=== PATIENT | female | born 1980 | race Caucasian/White ===

== ENCOUNTER → 2016-11-06 | Outpatient (CLI) | payer OTHER ==
--- NOTE | 2016-11-06 16:31 | US ---
EXAMINATION TYPE: US thyroid st tissue head/neck DATE OF EXAM: 11/06/2016 3:58 PM COMPARISON: NONE CLINICAL HISTORY: R22.1 Swelling, Mass, Or Lump In Neck. Palpable area in right neck near ear for 5 m onths, no change in size 1.3cm normal appearing lymph node with internal fatty hilum and vascularity noted IMPRESSION: Normal-appearing lymph node at the site of clinical concern. Correlate clinically.
== END | disposition home or self-care (01) ==
LOC: RADUSWWP 15:48
PROVIDERS: ATTEND Otolaryngology
DX: R22.1 Localized swelling, mass and lump, neck (principal)
CPT/HCPCS: 76536

== ENCOUNTER 2018-04-23 23:35 | Emergency (ER) | payer OTHER ==
[2018-04-24 00:26] LABS: Basophils # (A) 0.1 k/uL (0-0.2); Basophils % (A) 1 %; Eosinophils # (A) 0.4 k/uL (0-0.7); Eosinophils % (A) 3 %; HCT 44.3 % (34.0-46.0); HGB 14.3 gm/dL (11.4-16.0); Lymphocytes # (A) 3.8 k/uL (1.0-4.8); Lymphocytes % (A) 30 %; MCH 29.8 pg (25.0-35.0); MCHC 32.3 g/dL (31.0-37.0); MCV 92.2 fL (80.0-100.0); Mean Platelet Volume 6.8; Monocytes # (A) 0.5 k/uL (0-1.0); Monocytes % (A) 4 %; Neutrophils # (A) 7.5 k/uL (1.3-7.7); Neutrophils % (A) 61 %; Platelet Count 283 k/uL (150-450); RBC 4.81 m/uL (3.80-5.40); RDW 12.7 % (11.5-15.5); WBC 12.4 k/uL (3.8-10.6)
[2018-04-24 00:27] LABS: Appearance,Urine Clear (Clear); Bilirubin,Urine Negative (Negative); Blood,Urine Negative (Negative); Color,Urine Yellow; Glucose,Urine (UA) Negative (Negative); Ketones,Urine Negative (Negative); Leukocyte Esterase,Urine Negative (Negative); Nitrite,Urine Negative (Negative); PH, Urine 7.5 (5.0-8.0); Protein,Urine Negative (Negative); Specific Gravity,Urine 1.016 (1.001-1.035); Urobilinogen,Urine <2.0 mg/dL (<2.0)
--- NOTE | 2018-04-24 00:32 | ED ---
Abdominal Pain HPI - General Chief Complaint: Abdominal Pain Stated Complaint: Abdominal Pain Time Seen by Provider: 04/24/18 00:01 Source: patient Mode of arrival: ambulatory Limitations: no limitations - History of Present Illness Initial Comments: This patient's a 37-year-old woman who presents to be evaluated for abdominal pain. She states that symptoms came on approximately 5 hours ago. She indicates the right lower quadrant. She states that she notes it more when she coughs and she had initially thought that she may have strained something because she has been doing a fair amount of coughing. She has not had vomiting or diarrhea but did have a little bit of nausea that has resolved. No fever or chills. No anorexia. No change in urination or bowel movements. The patient believes that her last menstrual period was normal but states that she has an IUD so she has very little bleeding anyways. MD Complaint: abdominal pain Onset/Timin -: hour(s) Location: RLQ Radiation: none Migration to: no migration Severity: moderate Quality: sharp Consistency: constant Improves With: nothing Worsens With: other (coughing) Associated Symptoms: nausea - Related Data Home Medications Medication Instructions Recorded Confirmed Famotidine [Pepcid] 1 tab PO BID 12/25/15 12/25/15 Vit 84/Iron/FA 1/Dha 1 tab PO DAILY 12/25/15 12/25/15 [Prenate Essential Softgel] Previous Rx's Medication Instructions Recorded Acetaminophen-Codeine 300-30mg 2 tab PO Q6H PRN #20 tablet 12/27/15 [Tylenol #3] Allergies Allergy/AdvReac Type Severity Reaction Status Date / Time No Known Allergies Allergy Verified 04/23/18 23:42 Review of Systems ROS Statement: Those systems with pertinent positive or pertinent negative responses have been documented in the HPI. ROS Other: All systems not noted in ROS Statement are negative. Constitutional: Denies: fever, chills Respiratory: Reports: cough. Denies: dyspnea, wheezes, hemoptysis Cardiovascular: Denies: chest pain, palpitations, edema Gastrointestinal: Reports: abdominal pain, nausea. Denies: vomiting, diarrhea, constipation, melena, hematochezia Genitourinary: Reports: other (IUD). Denies: dysuria, hematuria, abnormal menses Musculoskeletal: Denies: back pain Skin: Denies: rash Neurological: Denies: headache, weakness, numbness Past Medical History Past Medical History: GERD/Reflux, Musculoskeletal Disorder Additional Past Medical History / Comment(s): svt, cardiac ablation Jul 2010, spinal degeneration of discs, fracture l-5, heriation and stenosis of spine. fusion 2005. History of Any Multi-Drug Resistant Organisms: None Reported Past Surgical History: Adenoidectomy, Back Surgery, Cardiac Ablation, Tonsillectomy Additional Past Surgical History / Comment(s): cardiac ablation Jul 2010, Back Surgery March 29, 2012, laceration left elbow with plastic surgery, right knee meniscus repair, cervical lesion removed, lumbar fusion Past Anesthesia/Blood Transfusion Reactions: No Reported Reaction, Motion Sickness Past Psychological History: Anxiety Smoking Status: Current every day smoker Past Alcohol Use History: Rare Past Drug Use History: None Reported - Past Family History Father Family Medical History: Diabetes Mellitus Additional Family Medical History / Comment(s): family hx of carduiomyopathy=5 family members under 60 yrs of age due to. Mother Family Medical History: Asthma General Exam Limitations: no limitations General appearance: alert, in no apparent distress Head exam: Present: atraumatic, normocephalic Eye exam: Present: normal appearance. Absent: scleral icterus, conjunctival injection ENT exam: Present: normal oropharynx Neck exam: Present: normal inspection Respiratory exam: Present: wheezes (Very mild end expiratory wheeze), other ( Occasional nonproductive cough during exam). Absent: respiratory distress, rales, rhonchi, stridor Cardiovascular Exam: Present: regular rate, normal rhythm, normal heart sounds. Absent: systolic murmur, diastolic murmur, rubs, gallop GI/Abdominal exam: Present: soft, tenderness (There is mild right lower quadrant tenderness without rebound or guarding), normal bowel sounds. Absent: distended, guarding, rebound, rigid, mass, pulsatile mass, hernia Extremities exam: Present: normal inspection, normal capillary refill. Absent: pedal edema, calf tenderness Back exam: Present: normal inspection. Absent: CVA tenderness (R), CVA tenderness (L) Neurological exam: Present: alert Skin exam: Present: warm, dry, intact, normal color. Absent: rash Course Vital Signs 04/23/18 23:41 Temperature 98.2 F Pulse Rate 104 H Respiratory 20 Rate Blood Pressure 131/83 O2 Sat by Pulse 100 Oximetry Medical Decision Making - Medical Decision Making On reevaluation, the patient's symptoms have improved. She is declining any further treatment. On reevaluation there is no tenderness. We discussed appropriate further care and follow-up as well as return parameters. - Lab Data Result diagrams: 04/24/18 00:15 04/24/18 00:15 Lab Results 04/24/18 04/24/18 04/24/18 Range/Units 00:15 00:15 00:15 WBC 12.4 H (3.8-10.6) k/uL RBC 4.81 (3.80-5.40) m/uL Hgb 14.3 (11.4-16.0) gm/dL Hct 44.3 (34.0-46.0) % MCV 92.2 (80.0-100.0) fL MCH 29.8 (25.0-35.0) pg MCHC 32.3 (31.0-37.0) g/dL RDW 12.7 (11.5-15.5) % Plt Count 283 (150-450) k/uL Neutrophils % 61 % Lymphocytes % 30 % Monocytes % 4 % Eosinophils % 3 % Basophils % 1 % Neutrophils # 7.5 (1.3-7.7) k/uL Lymphocytes # 3.8 (1.0-4.8) k/uL Monocytes # 0.5 (0-1.0) k/uL Eosinophils # 0.4 (0-0.7) k/uL Basophils # 0.1 (0-0.2) k/uL Sodium 139 (137-145) mmol/L Potassium 4.4 (3.5-5.1) mmol/L Chloride 110 H (98-107) mmol/L Carbon Dioxide 24 (22-30) mmol/L Anion Gap 5 mmol/L BUN 13 (7-17) mg/dL Creatinine 0.55 (0.52-1.04) mg/dL Est GFR (CKD-EPI)AfAm >90 (>60 ml/min/1.73 sqM) Est GFR (CKD-EPI)NonAf >90 (>60 ml/min/1.73 sqM) Glucose 99 (74-99) mg/dL Calcium 9.3 (8.4-10.2) mg/dL Total Bilirubin 0.3 (0.2-1.3) mg/dL AST 21 (14-36) U/L ALT 22 (9-52) U/L Alkaline Phosphatase 47 (38-126) U/L Total Protein 6.1 L (6.3-8.2) g/dL Albumin 3.9 (3.5-5.0) g/dL Amylase 45 (30-110) U/L Lipase 188 (23-300) U/L Urine Color Urine Appearance (Clear) Urine pH (5.0-8.0) Ur Specific [place] (1.001-1.035) Urine Protein (Negative) Urine Glucose (UA) (Negative) Urine Ketones (Negative) Urine Blood (Negative) Urine Nitrite (Negative) Urine Bilirubin (Negative) Urine Urobilinogen (<2.0) mg/dL Ur Leukocyte Esterase (Negative) Urine HCG, Qual Not Detected (Not Detectd) 04/24/18 Range/Units 00:15 WBC (3.8-10.6) k/uL RBC (3.80-5.40) m/uL Hgb (11.4-16.0) gm/dL Hct (34.0-46.0) % MCV (80.0-100.0) fL MCH (25.0-35.0) pg MCHC (31.0-37.0) g/dL RDW (11.5-15.5) % Plt Count (150-450) k/uL Neutrophils % % Lymphocytes % % Monocytes % % Eosinophils % % Basophils % % Neutrophils # (1.3-7.7) k/uL Lymphocytes # (1.0-4.8) k/uL Monocytes # (0-1.0) k/uL Eosinophils # (0-0.7) k/uL Basophils # (0-0.2) k/uL Sodium (137-145) mmol/L Potassium (3.5-5.1) mmol/L Chloride (98-107) mmol/L Carbon Dioxide (22-30) mmol/L Anion Gap mmol/L BUN (7-17) mg/dL Creatinine (0.52-1.04) mg/dL Est GFR (CKD-EPI)AfAm (>60 ml/min/1.73 sqM) Est GFR (CKD-EPI)NonAf (>60 ml/min/1.73 sqM) Glucose (74-99) mg/dL Calcium (8.4-10.2) mg/dL Total Bilirubin (0.2-1.3) mg/dL AST (14-36) U/L ALT (9-52) U/L Alkaline Phosphatase (38-126) U/L Total Protein (6.3-8.2) g/dL Albumin (3.5-5.0) g/dL Amylase (30-110) U/L Lipase (23-300) U/L Urine Color Yellow Urine Appearance Clear (Clear) Urine pH 7.5 (5.0-8.0) Ur Specific [place] 1.016 (1.001-1.035) Urine Protein Negative (Negative) Urine Glucose (UA) Negative (Negative) Urine Ketones Negative (Negative) Urine Blood Negative (Negative) Urine Nitrite Negative (Negative) Urine Bilirubin Negative (Negative) Urine Urobilinogen <2.0 (<2.0) mg/dL Ur Leukocyte Esterase Negative (Negative) Urine HCG, Qual (Not Detectd) Disposition Clinical Impression: Abdominal pain, Bronchitis Disposition: HOME SELF-CARE Condition: Good Instructions: Abdominal Pain (ED) Is patient prescribed a controlled substance at d/c from ED?: No Referrals: Shimon Hall MD [Primary Care Provider] - 1-2 days
[2018-04-24 00:39] LABS: ALT 22 U/L (9-52); AST 21 U/L (14-36); Albumin 3.9 g/dL (3.5-5.0); Alkaline Phosphatase 47 U/L (38-126); Amylase 45 U/L (30-110); Anion Gap 5 mmol/L; Blood Urea Nitrogen 13 mg/dL (7-17); Calcium 9.3 mg/dL (8.4-10.2); Carbon Dioxide 24 mmol/L (22-30); Chloride 110 mmol/L (98-107); Glucose 99 mg/dL (74-99); Lipase 188 U/L (23-300); Potassium 4.4 mmol/L (3.5-5.1); Sodium 139 mmol/L (137-145); Total Bilirubin 0.3 mg/dL (0.2-1.3); Total Protein 6.1 g/dL (6.3-8.2)
--- NOTE | 2018-04-24 01:03 | CT ---
EXAMINATION TYPE: CT abdomen pelvis wo con DATE OF EXAM: 04/24/2018 COMPARISON: 03/31/2012 HISTORY: right sided flank pain CT DLP: 411.6 mGycm Automated exposure control for dose reduction was used. TECHNIQUE: Helical acquisition of images was performed from the lung bases through the pelvis. FINDINGS: Lung bases are clear. There is no pleural effusion. Heart size is normal. There is no pericardial eff usion. Stomach appears normal. Spleen is top normal in size and measures 13 cm. Liver appears normal. Bile ducts are not dilated. There is no sign of pancreatic mass. Gallbladder appears normal. There is no adrenal mass. Kidneys have normal size and contour. There is no hydronephrosis. There is no retroperitoneal adenopathy. There is no ascites. Ureters are not dilated. There is IUD noted in th e uterus. Uterus is anteverted. Bladder distends smoothly. There is no inguinal hernia. There is no f ree fluid in the pelvis. There is posterior fusion surgery from L4 to S1. Lumbar vertebra have normal alignment. There is narr owing of L4-5 L5-S1 disc spaces. Bony pelvis appears intact. There is no sign of free air. There is no intestinal wall thickening. There are no dilated loops. There are diverticula in the asce nding colon. Appendix is not seen. There is no sign of appendicitis. There are a few diverticula in t he left colon. IMPRESSION: There is some colonic diverticulosis without diverticulitis. There is clearing of the pulmonary infil trates and atelectasis at the lung bases compared to old exam. No sign of acute abdomen and pelvis. IMPRESSION:
[2018-04-24] MEDS ORDERED: KETOROLAC 30 MG/ML 1 ML VIAL IVP STA (01:27)
[2018-04-24] MEDS ORDERED: SODIUM CHLORIDE 0.9% 500 ML 500 ML IV STA (01:29)
[2018-04-24 02:45] VITALS: BP 98/57; PULSE 81; RESP 16; TEMP 97.8
== END 2018-04-24 02:45 | disposition home or self-care (01) ==
LOC: EC 23:35
DX: J40 Bronchitis, not specified as acute or chronic (principal); R10.31 Right lower quadrant pain; R11.0 Nausea; K21.9 Gastro-esophageal reflux disease without esophagitis; F17.200 Nicotine dependence, unspecified, uncomplicated; Z79.899 Other long term (current) drug therapy; Z97.5 Presence of (intrauterine) contraceptive device
CPT/HCPCS: 36415; 80053; 82150; 83690; 85025; 81003; 81025; 74176; 99284; 96374; 96361; J1885

== ENCOUNTER → 2018-10-01 | Outpatient (CLI) | payer OTHER ==
[2018-10-01 07:55] LABS: Basophils # (A) 0.1 k/uL (0-0.2); Basophils % (A) 1 %; Eosinophils # (A) 0.2 k/uL (0-0.7); Eosinophils % (A) 2 %; HCT 46.3 % (34.0-46.0); HGB 15.7 gm/dL (11.4-16.0); Lymphocytes # (A) 2.9 k/uL (1.0-4.8); Lymphocytes % (A) 27 %; MCH 30.1 pg (25.0-35.0); MCV 88.6 fL (80.0-100.0); Mean Platelet Volume 7.2; Monocytes # (A) 0.5 k/uL (0-1.0); Monocytes % (A) 5 %; Neutrophils # (A) 6.8 k/uL (1.3-7.7); Neutrophils % (A) 64 %; Platelet Count 317 k/uL (150-450); RBC 5.22 m/uL (3.80-5.40); RDW 13.9 % (11.5-15.5); WBC 10.7 k/uL (3.8-10.6)
[2018-10-01 09:39] LABS: Erythrocyte Sedimentation Rate 2 mm/hr (0-20)
[2018-10-01 16:34] LABS: Rheumatoid Factor 14 IU/mL (0-15)
[2018-10-01 16:44] LABS: Vitamin D 25 Hydroxy 51.8 ng/mL (30.0-100.0)
[2018-10-01 16:47] LABS: ALT 14 U/L (8-44); AST 15 U/L (13-35); Albumin/Globulin Ratio 2.72 (1.60-3.17); Alkaline Phosphatase 60 U/L (41-126); C Reactive Protein <0.4 mg/dL (0.0-0.8); Calcium 9.5 mg/dL (8.7-10.3); Carbon Dioxide 23.9 mmol/L (21.6-31.8); Chloride 107 mmol/L (96-109); Cholesterol 182 mg/dL (0-200); Globulin 1.8 g/dL (1.6-3.3); Glucose 94 mg/dL (70-110); LDL Cholesterol,Calculated 95.2 mg/dL (0.0-131.0); Potassium 4.2 mmol/L (3.5-5.5); Sodium 137 mmol/L (135-145); Total Bilirubin 0.5 mg/dL (0.3-1.2); Total Protein 6.7 g/dL (6.2-8.2)
[2018-10-01 17:26] LABS: Cyclic Citrullinated Pep IgG NEGATIVE (NEGATIVE)
== END | disposition home or self-care (01) ==
LOC: LABWHC1 07:08
PROVIDERS: ATTEND Internal Medicine
DX: Z00.00 Encounter for general adult medical examination without abnormal findings (principal); I73.00 Raynaud's syndrome without gangrene; E55.9 Vitamin D deficiency, unspecified
CPT/HCPCS: 36415; 80053; 80061; 82306; 85025; 85652; 86038; 86140; 86200; 86431

== ENCOUNTER 2019-06-22 15:30 | Emergency (ER) | payer OTHER ==
[2019-06-22 15:56] VITALS: BP 132/84; PULSE 78; RESP 18; TEMP 97.9
[2019-06-22] MEDS ORDERED: LIDOCAINE 1% INJ 10MG/ML (20 ML MDV) SQ ONE (16:25)
[2019-06-22] MEDS ORDERED: DIPH,PERTUS(ACELL)TETVAC-LF 0.5 ML VIAL IM ONE (16:25)
--- NOTE | 2019-06-22 16:52 | ED ---
General Adult HPI - General Chief complaint: Wound/Laceration Stated complaint: Laceration Time Seen by Provider: 06/22/19 16:20 Source: patient, RN notes reviewed Mode of arrival: ambulatory Limitations: no limitations - History of Present Illness Initial comments: 38-year-old female with a past medical history of GERD presents to the emergency department for a chief of laceration of the left second digit. This occurred just prior to arrival. The patient was using a knife for cooking when she cut her finger. She denies any difficulty moving her finger. Tetanus is not up-to-date.Patient has no other complaints at this time including shortness of breath, chest pain, abdominal pain, nausea or vomiting, headache, or visual changes. - Related Data Home Medications Medication Instructions Recorded Confirmed Famotidine [Pepcid] 1 tab PO BID 12/25/15 12/25/15 Vit 84/Iron/FA 1/Dha 1 tab PO DAILY 12/25/15 12/25/15 [Prenate Essential Softgel] Previous Rx's Medication Instructions Recorded Acetaminophen-Codeine 300-30mg 2 tab PO Q6H PRN #20 tablet 12/27/15 [Tylenol #3] Allergies Allergy/AdvReac Type Severity Reaction Status Date / Time No Known Allergies Allergy Verified 04/23/18 23:42 Review of Systems ROS Statement: Those systems with pertinent positive or pertinent negative responses have been documented in the HPI. ROS Other: All systems not noted in ROS Statement are negative. Past Medical History Past Medical History: GERD/Reflux, Musculoskeletal Disorder Additional Past Medical History / Comment(s): svt, cardiac ablation Jul 2010, spinal degeneration of discs, fracture l-5, heriation and stenosis of spine. fusion 2005. History of Any Multi-Drug Resistant Organisms: None Reported Past Surgical History: Adenoidectomy, Back Surgery, Cardiac Ablation, Tonsillectomy Additional Past Surgical History / Comment(s): cardiac ablation Jul 2010, Back Surgery March 29, 2012, laceration left elbow with plastic surgery, right knee meniscus repair, cervical lesion removed, lumbar fusion Past Anesthesia/Blood Transfusion Reactions: No Reported Reaction, Motion Sickness Past Psychological History: Anxiety Smoking Status: Former smoker Past Alcohol Use History: Rare Past Drug Use History: None Reported - Past Family History Father Family Medical History: Diabetes Mellitus Additional Family Medical History / Comment(s): family hx of carduiomyopathy=5 family members under 60 yrs of age due to. Mother Family Medical History: Asthma General Exam Limitations: no limitations General appearance: alert, in no apparent distress Head exam: Present: atraumatic Eye exam: Present: normal appearance, PERRL, EOMI. Absent: scleral icterus, co njunctival injection, periorbital swelling ENT exam: Present: normal exam, mucous membranes moist Neck exam: Present: normal inspection. Absent: tenderness, meningismus, lymphadenopathy Respiratory exam: Present: normal lung sounds bilaterally. Absent: respiratory distress, wheezes, rales, rhonchi, stridor Cardiovascular Exam: Present: regular rate, normal rhythm, normal heart sounds. Absent: systolic murmur, diastolic murmur, rubs, gallop, clicks Extremities exam: Present: full ROM (full Range motion of the left second digit including DIP and PIP joints), normal capillary refill (cap refill less than 2 seconds in the left second digit.), other (There is a 1.5 cm laceration across the palmar aspect of the middle phalanx of the left second digit). Absent: tenderness, pedal edema, joint swelling, calf tenderness Neurological exam: Present: alert Course Vital Signs 06/22/19 15:54 Temperature 97.9 F Pulse Rate 78 Respiratory 18 Rate Blood Pressure 132/84 O2 Sat by Pulse 100 Oximetry Procedures - Laceration Laceration #1 Consent Obtained: verbal consent Indication: laceration Site: hand Size (cm): 1 Description: linear Depth: simple, single layer Anesthetic Used: lidocaine 1% Anesthesia Technique: local infiltration Amount (mls): 2 Pre-repair: wound explored, irrigated extensively (with saline pressure irrigation), deep structures intact Type of Sutures: nylon Size of Sutures: 5-0 Number of Sutures: 5 Technique: simple, interrupted Patient Tolerated Procedure: well, no complications Medical Decision Making - Medical Decision Making There is a 1.5 cm laceration along the middle phalanx palmar aspect of the left second digit. Patient has full range of motion of the left second digit. Full strength in the flexor tendon. Thorough examination does not reveal any evidence of tendon injury. Wound was cleaned thoroughly with saline pressure irrigation. It was repaired with 5 simple interrupted sutures. I discussed return parameters with patient including ulcer infection. Discussed returning in 7-10 days for suture removal. Discussed following up with primary care in 1- 2 days for a wound recheck. Patient is in agreement. Disposition Clinical Impression: Laceration Disposition: HOME SELF-CARE Condition: Good Instructions (If sedation given, give patient instructions): Care For Your Stitches (ED), Laceration (ED) Additional Instructions: Please follow up with primary care in 1-2 days for a recheck. Please monitor for signs of infection. Return in 7-10 days for suture removal. Return earlier if you have any worsening symptoms. Is patient prescribed a controlled substance at d/c from ED?: No Referrals: Shimon Hall MD [Primary Care Provider] - 1-2 days Time of Disposition: 16:51
== END 2019-06-22 17:00 | disposition home or self-care (01) ==
LOC: EC 15:30
DX: S61.412A Laceration without foreign body of left hand, initial encounter (principal); Z23 Encounter for immunization; K21.9 Gastro-esophageal reflux disease without esophagitis; Z79.899 Other long term (current) drug therapy; Z87.891 Personal history of nicotine dependence; W26.0XXA Contact with knife, initial encounter; Y93.G3 Activity, cooking and baking
CPT/HCPCS: 90715; 99282; 12001; 90471; J2001

== ENCOUNTER → 2020-07-25 | Outpatient (CLI) | payer OTHER ==
--- NOTE | 2020-07-25 14:56 | MM ---
Reason for exam: screening (asymptomatic). Baseline mammogram. History: Patient had first child at age 33. Took hormonal contraceptives for 17 years. Physical Findings: Nurse did not find any significant physical abnormalities on exam. MG Screening Mammo w CAD Bilateral CC and MLO view(s) were taken. Spot compression MLO view(s) were taken of the right breast. The breast tissue is heterogeneously dense. This may lower the sensitivity of mammography. There is no discrete abnormality. Focal asymmetry disperses on compression compatible with summation density. These results were verbally communicated with the patient and result sheet given to the patient on 07/25/20. ASSESSMENT: Benign, BI-RAD 2 RECOMMENDATION: Routine screening mammogram of both breasts at age 42.
== END | disposition home or self-care (01) ==
LOC: RADMAMWWP 13:42
PROVIDERS: ATTEND Obstetrics & Gynecology
DX: Z12.31 Encounter for screening mammogram for malignant neoplasm of breast (principal)
CPT/HCPCS: 77067

== ENCOUNTER 2021-04-29 18:20 | Emergency (ER) | payer OTHER ==
[2021-04-29 19:06] VITALS: RESP 18
--- NOTE | 2021-04-29 19:37 | XR ---
Result: History: Pain. Comparison: None available. Technique: 3 views of the right knee. Findings: No acute fracture or dislocation is seen. The visualized osseous structures are in anatomic alignmen t. The joint spaces are preserved. There is no significant knee joint effusion. Impression: No acute osseous abnormality.
--- NOTE | 2021-04-29 19:55 | ED ---
Lower Extremity Injury HPI - General Chief Complaint: Extremity Injury, Lower Stated Complaint: rt knee injury Time Seen by Provider: 04/29/21 19:31 Source: patient, RN notes reviewed Mode of arrival: ambulatory Limitations: no limitations - History of Present Illness Initial Comments: This a 40-year-old female presents emergency Department with chief complaint of right knee pain. Patient states she was doing a lunge when she felt her knee buckled, had medial pain and shifting. Patient states that she is able to bear weight but states it feels pretty loose, painful. She states she cannot twist or bend it. Patient's had prior meniscus surgery. Patient offers no complaints. - Related Data Home Medications Medication Instructions Recorded Confirmed Famotidine [Pepcid] 1 tab PO BID 12/25/15 12/25/15 Multivit No.40/Iron/Folat1/Dha 1 tab PO DAILY 12/25/15 12/25/15 [Prenate Essential Softgel] Previous Rx's Medication Instructions Recorded Acetaminophen-Codeine 300-30mg 2 tab PO Q6H PRN #20 tablet 12/27/15 [Tylenol #3] HYDROcodone/APAP 7.5-325MG [[place] 1 tab PO Q6HR PRN 3 Days #12 tab 04/29/21 7.5-325] Allergies Allergy/AdvReac Type Severity Reaction Status Date / Time No Known Allergies Allergy Verified 04/23/18 23:42 Review of Systems ROS Statement: Those systems with pertinent positive or pertinent negative responses have been documented in the HPI. ROS Other: All systems not noted in ROS Statement are negative. Past Medical History Past Medical History: GERD/Reflux, Musculoskeletal Disorder Additional Past Medical History / Comment(s): svt, cardiac ablation Jul 2010, spinal degeneration of discs, fracture l-5, heriation and stenosis of spine. fusion 2005. History of Any Multi-Drug Resistant Organisms: None Reported Past Surgical History: Adenoidectomy, Back Surgery, Cardiac Ablation, Tonsillectomy Additional Past Surgical History / Comment(s): cardiac ablation Jul 2010, Back Surgery March 29, 2012, laceration left elbow with plastic surgery, right knee meniscus repair, cervical lesion removed, lumbar fusion Past Anesthesia/Blood Transfusion Reactions: No Reported Reaction, Motion Sickness Past Psychological History: Anxiety Past Alcohol Use History: Rare Past Drug Use History: None Reported - Past Family History Father Family Medical History: Diabetes Mellitus Additional Family Medical History / Comment(s): family hx of carduiomyopathy=5 family members under 60 yrs of age due to. Mother Family Medical History: Asthma General Exam Limitations: no limitations General appearance: alert, in no apparent distress Head exam: Present: atraumatic, normocephalic, normal inspection Respiratory exam: Present: normal lung sounds bilaterally. Absent: respiratory distress, wheezes, rales, rhonchi, stridor Cardiovascular Exam: Present: regular rate, normal rhythm, normal heart sounds. Absent: systolic murmur, diastolic murmur, rubs, gallop, clicks Extremities exam: Present: other (Right knee, leg neurovascular intact, there is pain with valgus, no pain with varus, no anterior posterior laxity noted, minimal swelling noted.) Course Vital Signs 04/29/21 19:03 Temperature 98.2 F Pulse Rate 82 Respiratory 18 Rate Blood Pressure 123/60 O2 Sat by Pulse 98 Oximetry Medical Decision Making - Medical Decision Making X-ray is essentially unremarkable there is mild fluid noted. Patient was placed in knee immobilizer follow-up with orthopedics associate in the morning as she seen in the past. Disposition Clinical Impression: Right knee sprain, Injury of ligament of right knee Disposition: HOME SELF-CARE Condition: Stable Instructions (If sedation given, give patient instructions): Knee Sprain (ED), Knee Pain (ED) Additional Instructions: Please return to the Emergency Department if symptoms worsen or any other concerns. Prescriptions: HYDROcodone/APAP 7.5-325MG [[place] 7.5-325] 1 tab PO Q6HR PRN 3 Days #12 tab PRN Reason: Pain Is patient prescribed a controlled substance at d/c from ED?: No Referrals: Jcarlos Singh MD [Primary Care Provider] - 1-2 days Vladimir Batres MD [Medical Doctor] - 1-2 days Time of Disposition: 19:55
[2021-04-29 20:21] VITALS: BP 118/77; PULSE 78; TEMP 98.7
== END 2021-04-29 20:20 | disposition home or self-care (01) ==
LOC: EC 18:20
DX: S83.91XA Sprain of unspecified site of right knee, initial encounter (principal); K21.9 Gastro-esophageal reflux disease without esophagitis; Z79.899 Other long term (current) drug therapy; Z83.3 Family history of diabetes mellitus; X50.1XXA Overexertion from prolonged static or awkward postures, initial encounter
CPT/HCPCS: 73562; 99283; L1830

== ENCOUNTER → 2022-11-10 | Outpatient (CLI) | payer BC ==
--- NOTE | 2022-11-11 19:33 | MM ---
Reason for Exam: Screening (asymptomatic). Last mammogram was performed 2 year(s) and 4 month(s) ago. Patient History: Menarche at age 15. First Full-Term at age 33. Late child-bearing (after 32). Patient used Hormonal Contraceptives for 17 years. Last menstrual period: 10/23/2022 Risk Values: Rosa 5 year model risk: 0.8%. NCI Lifetime model risk: 13.6%. Prior Study Comparison: 07/25/2020 Bilateral Screening Mammogram, [facility]. Tissue Density: There are scattered fibroglandular densities. Findings: Analyzed By CAD. There is no suspicious group of microcalcifications or new suspicious mass in either breast. Overall Assessment: Negative, BI-RAD 1 Management: Screening Mammogram of both breasts in 1 year. . Patient should continue monthly self-breast exams. A clinical breast exam by your physician is recommended on an annual basis. This exam should not preclude additional follow-up of suspicious palpable abnormalities. Note on Rosa scores and lifetime risk: 1. A Rosa score greater than 3% is considered moderate risk. If this is the case, consider specialist referral to assess eligibility for a risk reducing agent. 2. If overall lifetime risk for the development of breast cancer is 20% or higher, the patient may qualify for future screening with alternating mammogram and breast MRI. Electronically signed and approved by: Zully Watts M.D. Radiologist
== END | disposition home or self-care (01) ==
LOC: RADMAMWWP 13:48
PROVIDERS: ATTEND Obstetrics & Gynecology
DX: Z12.31 Encounter for screening mammogram for malignant neoplasm of breast (principal)
CPT/HCPCS: 77063; 77067

== ENCOUNTER → 2023-11-17 | Outpatient (CLI) | payer BC ==
--- NOTE | 2023-11-24 09:22 | MM ---
Reason for Exam: Screening (asymptomatic). Last screening mammogram was performed 12 month(s) ago. Patient History: Menarche at age 15. First Full-Term at age 33. Late child-bearing (after 32). Patient has history of breast feeding. Patient used Hormonal Contraceptives for 17 years. Risk Values: Rosa 5 year model risk: 0.8%. NCI Lifetime model risk: 13.5%. Prior Study Comparison: 07/25/2020 Bilateral Screening Mammogram, [facility]. 11/10/2022 Bilateral MG 3D screening mammo w/cad, [facility]. Tissue Density: The breasts are heterogeneously dense, which may obscure small masses. Findings: Analyzed By CAD. There is no suspicious group of microcalcifications or new suspicious mass in either breast. Overall Assessment: Benign, BI-RAD 2 Management: Screening Mammogram of both breasts in 1 year. . Patient should continue monthly self-breast exams. A clinical breast exam by your physician is recommended on an annual basis. This exam should not preclude additional follow-up of suspicious palpable abnormalities. Note on Rosa scores and lifetime risk: 1. A Rosa score greater than 3% is considered moderate risk. If this is the case, consider specialist referral to assess eligibility for a risk reducing agent. 2. If overall lifetime risk for the development of breast cancer is 20% or higher, the patient may qualify for future screening with alternating mammogram and breast MRI. Electronically signed and approved by: Claudio Cole M.D. Radiologis
== END | disposition home or self-care (01) ==
LOC: RADMAMWWP 07:04
PROVIDERS: ATTEND Obstetrics & Gynecology
DX: Z12.31 Encounter for screening mammogram for malignant neoplasm of breast (principal)
CPT/HCPCS: 77063; 77067

== ENCOUNTER → 2024-03-31 | Outpatient (CLI) | payer BC ==
--- NOTE | 2024-03-31 15:29 | US ---
EXAMINATION TYPE: US thyroid st tissue head/neck DATE OF EXAM: 03/31/2024 COMPARISON: EXAMINATION TYPE: US thyroid st tissue head/neck DATE OF EXAM: 03/31/2024 COMPARISON: NONE CLINICAL INDICATION: Female, 43 years old with history of R22.1 LOCALIZED SWELLING; Lump right neck. TECHNIQUE: Limited ultrasound over the area of palpable abnormality. FINDINGS: Hypoechoic area right neck lump area measuring 2.5 x .6 x 1.2 cm. IMPRESSION: Limited ultrasound over the area of palpable abnormality demonstrates a nonspecific 2.5 x 0.6 x 1.2 cm soft tissue nodule likely related to a lymph node. [facility], , 03/31/2024 3:27 PM
== END | disposition home or self-care (01) ==
LOC: RADUSWWP 14:56
PROVIDERS: ATTEND Family Medicine
DX: R22.1 Localized swelling, mass and lump, neck (principal)
CPT/HCPCS: 76536

== ENCOUNTER → 2024-05-20 | Outpatient (CLI) | payer BC ==
--- NOTE | 2024-05-20 09:19 | CT ---
EXAMINATION TYPE: CT soft tissue neck w con DATE OF EXAM: 05/20/2024 8:57 AM COMPARISON: None. CLINICAL INDICATION: Female, 43 years old with history of R59.0 ENLARGED LYMPH NODES, lump mass on ri ght side of neck, bb placed over area TECHNIQUE: Standard enhanced CT of the neck. Axial sections with coronal and sagittal reformats were obtained. Contrast used:100 mL of Isovue 300 with IV Contrast, (None if empty) Oral contrast used: (None if empty) CT DLP: 360 mGycm, Automated exposure control for dose reduction was used. FINDINGS: Brain: Visualized portions are grossly unremarkable. Orbits: Unremarkable Sinuses: Grossly unremarkable. Spaces of the neck: Clear and symmetric. Right neck palpable marker correlates with prominent externa l jugular vein, no enlarged lymph nodes identified. Musculoskeletal: No acute osseous pathology. Lymph nodes: Multiple nonenlarged lymph nodes are seen along both anterior chains of the neck. Vascular structures: Visualized major arteries are patent without evidence of aneurysm. No significan t stenosis at the carotid bifurcations. Left dominant vertebral artery system. Thoracic Inlet/airway: Airway is patent. The lung apices are clear. Soft tissues/Thyroid: Thyroid and remainder of the soft tissues are unremarkable. Other: none. IMPRESSION: Right neck palpable marker correlates with prominent external jugular vein , no enlarged lymph nodes identified. [facility], , 05/20/2024 9:17 AM
== END | disposition home or self-care (01) ==
LOC: RADCTMAIN 08:29
PROVIDERS: ATTEND Otolaryngology
DX: R22.1 Localized swelling, mass and lump, neck (principal)
CPT/HCPCS: 70491; Q9967

== ENCOUNTER → 2024-09-16 | Outpatient (CLI) | payer OTHER ==
--- NOTE | 2024-09-16 16:55 | XR ---
EXAMINATION TYPE: XR knee complete RT DATE OF EXAM: 09/16/2024 4:36 PM INDICATION: Patient age:Female; 44 years old; Reason for study: S83.91XA SPRAIN OF UNSPECIFIED SITE OF RIGHT KNEE, INITIAL; [facility]. pain COMPARISON: Right knee radiograph 04/29/2021 TECHNIQUE: The Right knee(s) was examined in Frontal, lateral and oblique projections. FINDINGS: No evidence of any acute osseous pathology, soft tissue swelling, or joint effusion is no nadeen. Incidental fabella. No radiopaque foreign body. IMPRESSION: No acute osseous pathology. [facility], , 09/16/2024 4:53 PM
== END | disposition home or self-care (01) ==
LOC: RADXRMAIN 16:24
PROVIDERS: ATTEND Emergency Medicine
DX: S83.91XA Sprain of unspecified site of right knee, initial encounter (principal)

== ENCOUNTER → 2024-10-14 | Outpatient (CLI) | payer OTHER ==
--- NOTE | 2024-10-14 15:05 | MR ---
EXAMINATION TYPE: MR knee RT wo con DATE OF EXAM: 10/14/2024 1:58 PM COMPARISON: Radiograph 09/16/2024 CLINICAL INDICATION: Female, 44 years old with history of S83.91XD SPRAIN OF UNSPECIFIED SITE OF RIGH T KNEE,, Rt knee pain after injury, instability TECHNIQUE: Multiplanar, multisequence imaging of the right knee is performed without IV contrast. FINDINGS: The ACL, PCL, MCL, and LCL complex are intact. Medial meniscus shows subtle oblique tear extending within the junction of the posterior horn and bod y. Overall medial compartment articular cartilage volume is maintained though early degenerative spur ring is present. The lateral meniscus is intact. There is a focal 5 x 4 mm area of moderate to severe cartilage loss a long the mid weightbearing aspect of the lateral compartment along the femoral condyle. Otherwise, th ere is mild diffuse thinning of articular cartilage volume. Some focal edema within the suprapatellar fat pad and also within the fat located inferior and latera l to the patella. There is moderate irregular cartilage thinning throughout the patellar facets of the patellofemoral c ompartment. Extensor mechanism is intact. Nonspecific mild anterior soft tissue swelling. Small, probably physiologic joint fluid. No sizable Talley's cyst. Normal popliteal artery anatomy. No suspicious bone marrow placement. Mild generalized muscle atrophy . IMPRESSION: 1. Oblique tear at the junction of the posterior horn and body of the medial meniscus. 2. A focal 5 x 4 mm area of moderate to severe cartilage loss involving the mid weightbearing aspect of the lateral femoral condyle. 3. Moderate irregular cartilage loss along the patellar facets of the patellofemoral compartment. 4. Some edema within the suprapatellar fat pad and also small area of edema within Hoffa's fat inferi or and lateral to the patella. Findings are nonspecific but can be seen in the setting of fat pad imp ingement syndrome. Clinically correlate. [facility], , 10/14/2024 3:03 PM
== END | disposition home or self-care (01) ==
LOC: RADMRIMAIN 13:29
PROVIDERS: ATTEND Emergency Medicine
DX: S83.91XD Sprain of unspecified site of right knee, subsequent encounter (principal); S83.241D Other tear of medial meniscus, current injury, right knee, subsequent encounter